=== PATIENT | female | born 1940 | race Caucasian/White ===

== ENCOUNTER 2017-03-03 19:16 | Emergency (ER) | payer MEDICARE ==
[~2017-03-03] VITALS: Ht 157.5 cm; Wt 130.0 kg
[2017-03-03] MEDS ORDERED: SODIUM CHLORIDE 0.9% 1,000ML IVBOLUS ONE (20:00)
[2017-03-03] MEDS ORDERED: PLEASE ENTER ALLERGIES MC SCH ×2 (20:00)
[2017-03-03 20:50] LABS: BLOOD UREA NITROGEN 27 mg/dL (7-18)
[2017-03-03 21:47] LABS: IS PT STATUS REG ER OR PRE ER? YES
[2017-03-03] MEDS ORDERED: CEFTRIAXONE PMX 1GM/50ML 50 ML ONE (23:47)
[2017-03-04] MEDS ORDERED: CEFTRIAXONE PMX 1GM/50ML 50 ML IV ONE
[2017-03-04] MEDS ORDERED: CEFTRIAXONE 1,000 MG IM ONE
[2017-03-04] MEDS ORDERED: LIDOCAINE 1%, 20ML ONE (00:10)
[2017-03-04] MEDS ORDERED: CEFTRIAXONE 1,000 MG ONE (00:10)
[2017-03-04 00:53] VITALS: BP 152/62
== END 2017-03-04 00:56 | disposition home or self-care (01) ==
LOC: ED 23:59
DX: J01.00 Acute maxillary sinusitis, unspecified (principal); J02.8 Acute pharyngitis due to other specified organisms; I10 Essential (primary) hypertension; E11.9 Type 2 diabetes mellitus without complications; E66.9 Obesity, unspecified
CPT/HCPCS: 36415; 71010; 80048; 82040; 83605; 83880; 84484; 85025; 87040; 96360; 96372; 99285; J0696; J7030

== ENCOUNTER → 2017-10-25 | Outpatient (CLI) | payer MEDICARE ==
[~2017-10-25] MED LIST: BUPIVACAINE/PF 0.5% ONE; FURO80TA3 PO; INSU100C SQ-INSULIN; INSU100V8 SQ; LOSA50TA6 PO; METF500T4 PO; OXYC5TAB3 PO; POTA20TA14 PO
== END | disposition home or self-care (01) ==
LOC: RAD 08:54
PROVIDERS: ATTEND Physician Assistant
DX: N39.0 Urinary tract infection, site not specified (principal)
CPT/HCPCS: 36569; 76937; 77001; C1751; J3490

== ENCOUNTER 2020-04-29 14:42 | Outpatient (CLI) | payer MEDICARE ==
[~2020-04-29 14:42] MED LIST changes: +ASPI-515 PO; -BUPIVACAINE/PF 0.5% ONE; +DOCU100C33 PO; +FURO20TA3 PO; +FURO40TA6 PO; +LOSA100T14 PO; +LOSA50TA14 PO; +LOSA50TA2 PO; -LOSA50TA6 PO; +MAGN400O7 PO; +MAGN400T36 PO; +METF500T17 PO; -METF500T4 PO; +TRIA10.8 IH
[2020-04-29] MEDS ORDERED: BUPIVACAINE/PF 0.5% ONE (15:26)
== END 2020-04-29 23:59 | disposition home or self-care (01) ==
LOC: RAD 14:42
PROVIDERS: ATTEND Internal Medicine Infectious Disease
DX: Z45.2 Encounter for adjustment and management of vascular access device (principal); Z79.2 Long term (current) use of antibiotics; Z88.8 Allergy status to other drugs, medicaments and biological substances
CPT/HCPCS: 36573; C1751

== ENCOUNTER → 2020-07-01 | Outpatient (CLI) | payer MEDICARE ==
[~2020-07-01] MED LIST changes: +BUPIVACAINE/PF 0.5% ONE
== END | disposition home or self-care (01) ==
LOC: RAD 08:22
PROVIDERS: ATTEND Internal Medicine Infectious Disease
DX: Z79.2 Long term (current) use of antibiotics (principal); Z88.8 Allergy status to other drugs, medicaments and biological substances
CPT/HCPCS: 36573; C1751